=== PATIENT | female | born 1980 | race Caucasian/White ===

== ENCOUNTER 2017-02-20 14:03 | Emergency (ER) | payer OTHER ==
[~2017-02-20] VITALS: Ht 162.6 cm; Wt 59.9 kg
[~2017-02-20 14:03] MED LIST: Motrin PO; Percocet 5/325,Endoc PO
[2017-02-20 14:27] LABS: ADD MIUA? YES; BILIRUBIN NEGATIVE; BLOOD SMALL; COLOR YELLOW ((YELLOW)); GLUCOSE (STRIP) NEGATIVE; KETONES 5; LEUKOCYTES NEGATIVE; NITRITE NEGATIVE; PROTEIN (STRIP) NEGATIVE; UROBILINOGEN 0.2 MG/DL (0.2-1.0)
[2017-02-20 14:30] LABS: BACTERIA RARE /HPF; EPITHELIAL CELLS RARE /HPF; MUCUS TRACE /LPF; RED BLOOD CELLS 0-5 /HPF (0-5); UCUL ADDED? NO; WHITE BLOOD CELLS 0-5 /HPF (0-5)
[2017-02-20 14:41] LABS: HEMATOCRIT 41.2 % (36.0-46.0); MCH 28.9 PG (29.0-34.0); MCHC 33.5 G/DL (30.0-36.0); MCV 86.4 FL (83-99); MEAN PLAT.VOLUME 10.3 uM^3 (9.5-12.4); PLATELET COUNT 207 K/uL (156-360); RBC DIS.WIDTH-CV 12.3 % (11.8-14.6); RBC DIS.WIDTH-SD 39.5 % (39-53); RED BLOOD COUNT 4.77 M/uL (3.80-5.20); WHITE BLOOD COUNT 4.9 K/uL (4.1-10.2)
[2017-02-20 14:53] LABS: CHLORIDE 103 mEq/L (99-109); POTASSIUM 3.9 mEq/L (3.7-5.4)
[2017-02-20 14:54] LABS: SODIUM 138 mEq/L (136-147)
[2017-02-20 14:56] LABS: GLUCOSE 92 mg/dL (70-99)
[2017-02-20 14:57] LABS: ANION GAP 11 MEQ/L (2-14)
[2017-02-20 14:58] LABS: TOTAL BILIRUBIN 0.3 mg/dL (0.0-1.0)
[2017-02-20 14:59] LABS: ALKALINE PHOSPHATASE 51 IU/L (3-129); GFR ESTIMATE (CALCULATED) > 59 mL/min/
[2017-02-20 15:01] LABS: UREA NITROGEN (BUN) 11 mg/dL (9-23)
[2017-02-20 15:08] LABS: QUANTITATIVE HCG < 4.0 MIU/ML
[2017-02-20 15:54] LABS: AMYLASE 45 IU/L (1-118)
[2017-02-20 16:02] LABS: LIPASE 33 U/L (1.0-51.0)
[2017-02-20 17:23] VITALS: BP 120/70
== END 2017-02-20 17:15 | disposition home or self-care (01) ==
LOC: EME 14:03
DX: R10.13 Epigastric pain (principal); R11.0 Nausea; R19.7 Diarrhea, unspecified
CPT/HCPCS: 76705; 80053; 81003; 82150; 83690; 84702; 85027; 99281; 99284

== ENCOUNTER 2017-03-08 23:26 | Emergency (ER) | payer OTHER ==
[~2017-03-08] VITALS: Ht 162.6 cm; Wt 60.7 kg
[2017-03-08 23:54] LABS: MCH 28.7 PG (29.0-34.0); MCHC 33.8 G/DL (30.0-36.0); MCV 85.1 FL (83-99); MEAN PLAT.VOLUME 9.4 uM^3 (9.5-12.4); PLATELET COUNT 307 K/uL (156-360); RBC DIS.WIDTH-CV 12.7 % (11.8-14.6); RBC DIS.WIDTH-SD 39.6 % (39-53); RED BLOOD COUNT 4.35 M/uL (3.80-5.20); WHITE BLOOD COUNT 6.6 K/uL (4.1-10.2)
[2017-03-09 00:02] LABS: CHLORIDE 107 mEq/L (99-109); POTASSIUM 3.7 mEq/L (3.7-5.4); SODIUM 138 mEq/L (136-147)
[2017-03-09 00:04] LABS: GLUCOSE 100 mg/dL (70-99)
[2017-03-09 00:05] LABS: ANION GAP 10 MEQ/L (2-14)
[2017-03-09 00:06] LABS: TOTAL BILIRUBIN 0.3 mg/dL (0.0-1.0)
[2017-03-09 00:08] LABS: ALKALINE PHOSPHATASE 49 IU/L (3-129); GFR ESTIMATE (CALCULATED) > 59 mL/min/
[2017-03-09 00:09] LABS: UREA NITROGEN (BUN) 8 mg/dL (9-23)
[2017-03-09 00:11] LABS: LIPASE 37 U/L (1.0-51.0)
[2017-03-09 00:17] LABS: QUANTITATIVE HCG < 4.0 MIU/ML
[2017-03-09] MEDS ORDERED: ZOFRAN8 MG PO (01:26)
[2017-03-09] MEDS ORDERED: BENTYL20 MG PO (01:26)
[2017-03-09] MEDS ORDERED: NORCO 5/3251 TABLET PO (01:26)
[2017-03-09 02:44] VITALS: BP 108/71
== END 2017-03-09 02:25 | disposition home or self-care (01) ==
LOC: EME → EDBD 23:26 → EME 23:26
DX: R10.13 Epigastric pain (principal); R11.2 Nausea with vomiting, unspecified; K82.8 Other specified diseases of gallbladder
CPT/HCPCS: 76705; 80053; 81003; 83690; 84702; 85027; 99281; 99284; J2270; J2405; S0028

== ENCOUNTER 2018-02-04 07:16 | Inpatient (IN) | payer OTHER ==
[~2018-02-04] VITALS: Ht 162.6 cm; Wt 76.4 kg
[2018-02-04] VITALS (19 sets, daily range): BP systolic 103–147; BP diastolic 49–84
[~2018-02-04 07:16] MED LIST changes: +BENTYL20 MG PO; +NORCO 5/3251 TABLET PO; +ZOFRAN8 MG PO
[2018-02-04 08:48] LABS: BASOPHIL (%) 0.4 % (0-1); EOSINOPHIL (%) 0.5 % (0-5); HEMATOCRIT 34.5 % (36.0-46.0); HEMOGLOBIN 11.8 G/DL (11.9-15.5); IMMATURE GRANULOCYTE (%) 0.4 % (0.0-0.7); LYMPHOCYTE (%) 12.1 % (15-42); MCHC 34.2 G/DL (30.0-36.0); MCV 84.8 FL (83-99); MONOCYTE (%) 6.8 % (3-12); MONOCYTE COUNT 0.6 K/uL (0-0.8); NEUTROPHIL (%) 79.8 % (45-76); NEUTROPHIL COUNT 6.8 K/uL (1.8-6.4); PLATELET COUNT 159 K/uL (156-360); RBC DIS.WIDTH-CV 14.4 % (11.8-14.6); RED BLOOD COUNT 4.07 M/uL (3.80-5.20); WHITE BLOOD COUNT 8.5 K/uL (4.1-10.2)
[2018-02-04 13:31] LABS: AMPHETAMINE NEGATIVE (500 ng/mL); BARBITURATES NEGATIVE (200 ng/mL); BENZODIAZEPINES NEGATIVE (150 ng/mL); BUPRENORPHINE NEGATIVE (10 ng/mL); COCAINE NEGATIVE (150 ng/mL); METHADONE NEGATIVE (200 ng/mL); METHAMPHETAMINE NEGATIVE (500 ng/mL); OPIATES (MORPHINE) NEGATIVE (100 ng/mL); OXYCODONE NEGATIVE (100 ng/mL); PHENCYCLIDINE NEGATIVE (25 ng/mL); PROPOXYPHENE NEGATIVE (300 ng/mL); THC CANNABINOIDS NEGATIVE (50 ng/mL); TRICYCLIC ANTIDEPRESSANTS NEGATIVE (300 ng/mL)
[2018-02-05] VITALS (9 sets, daily range): BP systolic 97–132; BP diastolic 54–87
[2018-02-05] MEDS ORDERED: MOTRIN800 MG PO (00:42)
[2018-02-06 07:04] VITALS: BP 98/52
== END 2018-02-06 10:47 | disposition home or self-care (01) | DRG 775 ==
LOC: LDRP-OP 07:16 → 2WEST 07:17 → LDRP-OP 08:59 → 2WEST 02-05 00:22 → LDRP-OP 03-13 15:56
PROVIDERS: Nurse Practitioner
DX: O76 Abnormality in fetal heart rate and rhythm complicating labor and delivery (principal); Z3A.39 39 weeks gestation of pregnancy; Z37.0 Single live birth; O69.81X0 Labor and delivery complicated by cord around neck, without compression, not applicable or unspecified
CPT/HCPCS: 80306 90; 85025; C1755; G0378; J2405; J2540; J3010; J7120